=== PATIENT | female | born 1955 | race Caucasian/White ===

== ENCOUNTER 2017-02-27 12:45 | Outpatient (CLI) | payer SELFPAY | END 2017-02-27 23:00 | LOC: LAB SRH 12:45 | DX: M79.661 Pain in right lower leg (principal) | CPT/HCPCS: 90074; 91556 ==

== ENCOUNTER 2017-04-15 15:47 | Outpatient (CLI) | payer SELFPAY ==
--- NOTE | 2017-04-15 17:30 | DIAGNOSTIC IMAGING REPORT ---
PROCEDURE: US VENOUS - RIGHT EXT INDICATION: RT LEG VARICOUS VEINS TECHNIQUE: Duplex sonography of the deep and superficial venous system in of the right lower extremity was performed. Compression and augmentation techniques were used. The patient was scanned in the upright position. Surveillance of the venous system during Valsalva maneuver when appropriate was performed. COMPARISON: None. FINDINGS: Right common femoral vein is competent (1.5 seconds). Superficial femoral and greater saphenous veins are competent. Greater saphenous vein measures 5.6 mm proximally, 3.8 mm mid and 3.6 mm distally. IMPRESSION: 1. Right common femoral vein venous insufficiency.
== END 2017-04-15 23:00 ==
LOC: US SRH 15:47
DX: I87.2 Venous insufficiency (chronic) (peripheral) (principal)